=== PATIENT | female | born 1960 | race African-American/Black ===

== ENCOUNTER 2020-04-12 10:27 | Emergency (ER) | payer OTHER ==
--- NOTE | 2020-04-12 11:17 | RAD ---
EXAM: XR Knee Lt 4 View STANDARD PROVIDED CLINICAL HISTORY: Pain FINDINGS: There is no evidence for fracture or other acute osseous abnormality. Alignment appears anatomic. Pos toperative changes of left total knee arthroplasty are demonstrated, without evidence for hardware loosening or migration. IMPRESSION: No evidence for an acute osseous abnormality. If there is persistent clinical concern, conservative m anagement and follow-up imaging advised.
== END 2020-04-12 12:50 | disposition home or self-care (01) ==
LOC: ERS 10:27
DX: S83.92XA Sprain of unspecified site of left knee, initial encounter (principal); Z96.652 Presence of left artificial knee joint; W18.2XXA Fall in (into) shower or empty bathtub, initial encounter

== ENCOUNTER 2022-02-21 11:19 | Outpatient (CLI) | payer BC | END 2022-02-21 11:20 | disposition home or self-care (01) | LOC: DTY/OP 11:19 | PROVIDERS: ATTEND Specialist | DX: E66.01 Morbid (severe) obesity due to excess calories (principal); Z68.44 Body mass index [BMI] 60.0-69.9, adult | CPT/HCPCS: 97802 ==

== ENCOUNTER 2022-03-26 10:54 | Outpatient (CLI) | payer BC | END 2022-03-26 10:55 | disposition home or self-care (01) | LOC: DTY/OP 10:54 | PROVIDERS: ATTEND Specialist | DX: E66.01 Morbid (severe) obesity due to excess calories (principal) | CPT/HCPCS: 97802 ==

== ENCOUNTER 2022-04-25 11:12 | Outpatient (CLI) | payer BC | END 2022-04-25 11:13 | disposition home or self-care (01) | LOC: DTY/OP 11:12 | PROVIDERS: ATTEND Specialist | DX: E66.01 Morbid (severe) obesity due to excess calories (principal) | CPT/HCPCS: 97802 ==

== ENCOUNTER 2022-06-17 13:09 | Outpatient (CLI) | payer BC | END 2022-06-17 13:10 | disposition home or self-care (01) | LOC: DTY/OP 13:09 | PROVIDERS: ATTEND Specialist | DX: E66.01 Morbid (severe) obesity due to excess calories (principal) | CPT/HCPCS: 97802 ==

== ENCOUNTER 2022-07-31 15:40 | Emergency (ER) | payer BC ==
[2022-07-31 16:28] LABS: Bacteria/HPF None Seen HPF (None Seen); Bilirubin Negative (Negative); Blood, Urine Trace (Negative); Clarity Clear (Clear); Glucose, Urine (Dipstick) Normal (Negative); Ketone, Urine Negative (Negative); Leukocyte Negative Leu/uL (Negative); Nitrite Negative (Negative); Protein, Urine (Dipstick) Negative (Neg-Trace); RBC/HPF None Seen HPF (0-3); Specific Gravity, Urine 1.002 (1.002-1.036); Squamous Epithelial None Seen HPF (0-3); Urobilinogen Normal mg/dL (Less than 2); WBC/HPF 0-3 HPF (0-3); pH, Urine 6.5 (5.0-9.0)
[2022-07-31 17:05] LABS: #Lymphocytes 1.5 thou/uL (1.20-3.40); #Monocytes 0.6 thou/uL (0.11-0.59); #Neutrophils 2.7 thou/uL (1.40-6.50); %Basophils 0.8 % (0.0-1.0); %Lymphocytes 30.6 % (21.0-51.0); %Monocytes 12.1 % (0.0-10.0); %Neutrophils 55.5 % (42.0-75.0); Hemoglobin 14.6 g/dL (12.0-16.0); Mean Corpuscular HGB CONC 33.2 g/dL (32.0-36.0); Mean Corpuscular Hemoglobin 33.6 pg (27.0-31.0); Mean Platelet Volume 7.4 fL (7.4-10.4); Platelet Count 140 10x3/uL (130-400); RBC Distribution Width 14.3 % (11.5-14.5); Red Blood Cell (RBC) Count 4.35 mill/uL (4.20-5.40); White Blood Cell (WBC) Count 4.8 10x3/uL (4.8-10.8)
[2022-07-31] MEDS ORDERED: Simethicone Chewable 80 MG TAB PO SCH ×2 (17:15)
[2022-07-31 17:24] LABS: ALT (SGPT) 27 U/L (8-55); AST (SGOT) 28 U/L (5-34); Albumin 3.7 g/dL (3.4-4.8); Alkaline Phosphatase 128 U/L (40-110); Anion Gap 11 mmol/L (10-20); BUN (Urea Nitrogen) 13 mg/dL (9.8-20.1); Bilirubin, Total 0.4 mg/dL (0.2-1.2); Calc. Creatinine Clearance 0 mL/min (70-130); Calcium 7.9 mg/dL (7.8-10.44); Carbon Dioxide 27 mmol/L (23-31); Chloride 106 mmol/L (98-107); Estimated GFR 72; Globulin 3.7 g/dL (2.4-3.5); Glucose 83 mg/dL (80-115); Protein, Total 7.4 g/dL (5.8-8.1); Sodium 140 mmol/L (136-145)
== END 2022-07-31 19:20 | disposition home or self-care (01) ==
LOC: ERS 15:40
DX: E03.9 Hypothyroidism, unspecified (principal); E66.9 Obesity, unspecified; E78.00 Pure hypercholesterolemia, unspecified; Z79.899 Other long term (current) drug therapy
CPT/HCPCS: 36415; 80053; 81003; 81015; 84443; 84484; 85025; 93005; 96360; 96361

== ENCOUNTER 2022-10-14 05:53 | Day surgery (SDC) | payer BC ==
[2022-10-13 14:57] VITALS: BMI 55.7
[~2022-10-14 05:53] MED LIST: EPINEPHrine 0.3 MG in Ophthalmic Irrigation Solution 500 ML IRR SCH
[2022-10-14] MEDS ORDERED: fentaNYL 50 mcg/mL 1 mL Vial ONE (06:31)
[2022-10-14] MEDS ORDERED: Midazolam HCl 2 mg/2 ml Vial ONE (06:31)
[2022-10-14] MEDS ORDERED: Phenylephrine 10% OPTH 5 ML BOT ONE (06:50)
[2022-10-14] MEDS ORDERED: Cyclopentolate 1% Opth Drop 2 ML BOT ONE (06:50)
[2022-10-14] MEDS ORDERED: Triamcinolone 40 MG/ML VIAL ONE (08:24)
[2022-10-14] MEDS ORDERED: CEFAZOLIN 1 GM VIAL ONE (08:24)
[2022-10-14] MEDS ORDERED: Lidocaine 4% PF 5 ML AMP ONE (08:24)
[2022-10-14] MEDS ORDERED: Lidocaine 1% PF 5 ML VIAL ONE (08:24)
[2022-10-14] MEDS ORDERED: PROPOFOL 200 MG/20 ML VIAL ONE (08:24)
[2022-10-14] MEDS ORDERED: Maxitrol 0.1% Opth Oint 3.5 GM TUBE ONE (08:24)
[2022-10-14] MEDS ORDERED: Indocyanine Green 25 MG/10 ML VIAL ONE (08:24)
[2022-10-14] MEDS ORDERED: Bupivacaine 0.75% 10 ML VIAL ONE (08:24)
== END 2022-10-14 10:55 | disposition home or self-care (01) ==
LOC: SDC 05:53
PROVIDERS: ATTEND Ophthalmology Retina Specialist
PROC: 08T43ZZ Resection of Right Vitreous, Percutaneous Approach (ICD-10-PCS; principal; 2022-10-14)
PROC: 08NE3ZZ Release Right Retina, Percutaneous Approach (ICD-10-PCS; principal; 2022-10-14)
DX: H35.341 Macular cyst, hole, or pseudohole, right eye (principal); E89.0 Postprocedural hypothyroidism; Z79.890 Hormone replacement therapy; Z79.899 Other long term (current) drug therapy
CPT/HCPCS: 67025; J0171; J0690; J2250; J2704; J3010; J3301; J3490

== ENCOUNTER 2023-03-29 20:51 | Emergency (ER) | payer BC ==
[2023-03-29 22:26] LABS: #Eosinphils 0.1 thou/uL (0.0-0.7); #Monocytes 0.6 thou/uL (0.11-0.59); #Neutrophils 2.1 thou/uL (1.40-6.50); %Basophils 0.7 % (0.0-1.0); %Eosinophils 1.1 % (0.0-10.0); %Lymphocytes 37.1 % (21.0-51.0); %Monocytes 13.2 % (0.0-10.0); %Neutrophils 47.2 % (42.0-75.0); Hematocrit 43.4 % (36.0-47.0); Hemoglobin 14.6 g/dL (12.0-16.0); Mean Corpuscular HGB CONC 33.6 g/dL (32.0-36.0); Mean Corpuscular Hemoglobin 32.1 pg (27.0-31.0); Mean Corpuscular Volume 95.4 fl (78.0-98.0); Mean Platelet Volume 10.1 fL (7.4-10.4); Platelet Count 149 10x3/uL (130-400); RBC Distribution Width 15.6 % (11.5-14.5); Red Blood Cell (RBC) Count 4.55 mill/uL (4.20-5.40); White Blood Cell (WBC) Count 4.5 10x3/uL (4.8-10.8)
[2023-03-29 22:49] LABS: ALT (SGPT) 38 U/L (8-55); AST (SGOT) 41 U/L (5-34); Albumin 4.2 g/dL (3.4-4.8); Alkaline Phosphatase 103 U/L (40-110); Anion Gap 11 mmol/L (10-20); BUN (Urea Nitrogen) 12 mg/dL (9.8-20.1); Bilirubin, Total 0.3 mg/dL (0.2-1.2); Calc. Creatinine Clearance 0 mL/min (70-130); Calcium 9.3 mg/dL (7.8-10.44); Carbon Dioxide 28 mmol/L (23-31); Chloride 102 mmol/L (98-107); Estimated GFR 70; Globulin 4.1 g/dL (2.4-3.5); Glucose 104 mg/dL (80-115); Potassium 4.4 mmol/L (3.5-5.1); Protein, Total 8.3 g/dL (5.8-8.1); Sodium 137 mmol/L (136-145)
[2023-03-30 00:13] LABS: Magnesium 1.9 mg/dL (1.6-2.6)
[2023-03-30 00:18] LABS: Troponin I Less than 0.010 ng/mL (< 0.028)
[2023-03-30] MEDS ORDERED: Simethicone Chewable 80 MG TAB PO SCH (00:30)
[2023-03-30 00:32] LABS: Free T4 (Free Thyroxine) 1.46 ng/dL (0.70-1.48); Thyroid Stimulating Hormone 0.4112 uIU/mL (0.35-4.94)
[2023-03-30 01:40] LABS: Bilirubin Negative (Negative); Blood, Urine 1+ (Negative); CAUTI Indications for Culture Alt mental st,lethar; Clarity Clear (Clear); Glucose, Urine (Dipstick) Normal (Negative); Ketone, Urine Negative (Negative); Leukocyte Negative Leu/uL (Negative); Nitrite Negative (Negative); Protein, Urine (Dipstick) Negative (Neg-Trace); Specific Gravity, Urine 1.019 (1.002-1.036); Squamous Epithelial 0-3 HPF (0-3); Urobilinogen Normal mg/dL (Less than 2); WBC/HPF 0-3 HPF (0-3)
[2023-03-30 01:41] LABS: Bacteria/HPF 1+ HPF (None Seen)
[2023-03-30 01:42] LABS: Urine Culture Reflex No No
== END 2023-03-30 02:20 | disposition home or self-care (01) ==
LOC: ERS 20:51
DX: R53.1 Weakness (principal); E78.00 Pure hypercholesterolemia, unspecified; Z79.899 Other long term (current) drug therapy
CPT/HCPCS: 36415; 71045; 80053; 81001; 83735; 84439; 84443; 84484; 85025; 93005

== ENCOUNTER 2024-12-06 11:00 | Outpatient (CLI) | payer MEDICARE | END 2024-12-06 11:01 | disposition home or self-care (01) | LOC: BICMAMMO 11:00 | PROVIDERS: ATTEND Nurse Practitioner Family | DX: Z12.31 Encounter for screening mammogram for malignant neoplasm of breast (principal); Z80.3 Family history of malignant neoplasm of breast; Z91.89 Other specified personal risk factors, not elsewhere classified | CPT/HCPCS: 77063; 77067 ==